=== PATIENT | male | born 1980 | race Caucasian/White ===

== ENCOUNTER 2017-12-12 00:57 | Inpatient (IN) | payer BC ==
[~2017-12-12] VITALS: Ht 167.6 cm; Wt 84.0 kg
[2017-12-12 01:29] LABS: microscopic required? NO
[2017-12-12 01:39] LABS: BASOPHIL % 0.3 % (0-2); PLATELET COUNT 270 x10^3mcL (130-400); RED CELL DISTRIBUTION WIDTH 13.8 % (11.5-14.5)
[2017-12-12 01:47] LABS: UA SPECIFIC GRAVITY 1.025 (1.005-1.035); urine erythrocyte NEGATIVE (NEGATIVE)
[2017-12-12 01:51] LABS: CALCIUM 8.6 mg/dL (8.5-10.1); CHLORIDE SERUM 102 mmol/L (98-107); GFR1 > 60 mL/min; GLUCOSE SERUM 131 mg/dL (74-106); POTASSIUM SERUM 3.6 mmol/L (3.5-5.1); SODIUM SERUM 140 mmol/L (136-145)
[2017-12-12 01:56] LABS: ALBUMIN 3.9 g/dL (3.4-5.0); ALKALINE PHOSPHATASE 100 U/L (46-116); ALT/SGPT 44 U/L (16-63); AST/SGOT 21 U/L (15-37); BILIRUBIN TOTAL 0.33 mg/dL (0.20-1.00); LIPASE 158 IU/L (73-393); TOTAL PROTEIN, SERUM 7.3 g/dL (6.4-8.2)
[2017-12-12 05:49] LABS: MAGNESIUM 2.2 mg/dL (1.8-2.4); PHOSPHOROUS 3.8 mg/dL (2.5-4.9)
[2017-12-12 05:50] LABS: CHOLESTEROL/HDL RATIO 6.5
[2017-12-12 05:58] LABS: T3 TOTAL 1.16 ng/mL
[2017-12-12 06:07] LABS: FREE T4 1.06 ng/dL (0.76-1.46); FREE THYROXINE INDEX 3.1 ug/dL (1.4-4.5); T4(THYROXINE) 8.1 ug/dL (4.7-13.3)
[2017-12-12 07:05] VITALS: BP 114/58
[2017-12-12 07:43] VITALS: BP 114/57
[2017-12-12 12:00] VITALS: BP 123/67
[2017-12-12 15:47] VITALS: BP 123/67
[2017-12-12 19:15] VITALS: BP 111/69
[2017-12-12 23:00] VITALS: BP 119/68
[2017-12-13 03:00] VITALS: BP 122/64
[2017-12-13 05:26] LABS: BASOPHIL % 0.2 % (0-2); PLATELET COUNT 237 x10^3mcL (130-400); RED CELL DISTRIBUTION WIDTH 14.3 % (11.5-14.5)
[2017-12-13 05:42] LABS: CALCIUM 8.1 mg/dL (8.5-10.1); CARBON DIOXIDE 27.2 mmol/L (21-32); CHLORIDE SERUM 106 mmol/L (98-107); CREATININE SERUM 0.8 mg/dL (0.7-1.3); GFR1 > 60 mL/min; GLUCOSE SERUM 124 mg/dL (74-106); MAGNESIUM 2.1 mg/dL (1.8-2.4); PHOSPHOROUS 3.2 mg/dL (2.5-4.9); POTASSIUM SERUM 3.9 mmol/L (3.5-5.1); SODIUM SERUM 140 mmol/L (136-145)
[2017-12-13 06:30] VITALS: BP 102/60
[2017-12-13 09:15] VITALS: BP 105/56
[2017-12-13 15:41] VITALS: BP 114/61
[2017-12-13 17:04] VITALS: BP 101/53
[2017-12-13 22:09] VITALS: BP 100/57
[2017-12-14 05:30] VITALS: BP 94/60
[2017-12-14 07:37] LABS: BASOPHIL % 0.2 % (0-2); PLATELET COUNT 230 x10^3mcL (130-400)
[2017-12-14 07:38] LABS: CALCIUM 8.3 mg/dL (8.5-10.1); CARBON DIOXIDE 29.4 mmol/L (21-32); CHLORIDE SERUM 106 mmol/L (98-107); CREATININE SERUM 0.8 mg/dL (0.7-1.3); GFR1 > 60 mL/min; GLUCOSE SERUM 109 mg/dL (74-106); POTASSIUM SERUM 4.3 mmol/L (3.5-5.1); RED CELL DISTRIBUTION WIDTH 14.6 % (11.5-14.5); SODIUM SERUM 140 mmol/L (136-145)
[2017-12-14 08:00] VITALS: BP 110/64
[2017-12-14 08:04] VITALS: BP 92/59
[2017-12-14 12:02] VITALS: BP 116/66
[2017-12-14 13:27] VITALS: BP 92/59
[2017-12-14] MEDS ORDERED: NORCO 10-325 T1 EACH PO (15:08)
[2017-12-14] MEDS ORDERED: PEPCID20 MG PO (15:09)
[2017-12-14] MEDS ORDERED: CLARITIN10 MG PO (15:10)
== END 2017-12-14 16:30 | disposition home or self-care (01) | DRG 418 ==
LOC: ED 00:57 → IC 04:40 → DU 04:40 → IC 05:53 → DU 06:05 → IC 06:26 → DU 12-13 06:00 → MU 12-14 16:01
PROVIDERS: Emergency Medicine; Family Medicine; Surgery
PROC: 0FT44ZZ Resection of Gallbladder, Percutaneous Endoscopic Approach (ICD-10-PCS; principal; 2017-12-13 12:00)
DX: K81.0 Acute cholecystitis (principal); T88.6XXA Anaphylactic reaction due to adverse effect of correct drug or medicament properly administered, initial encounter; E78.5 Hyperlipidemia, unspecified; T36.0X5A Adverse effect of penicillins, initial encounter; E66.3 Overweight; M51.37 Other intervertebral disc degeneration, lumbosacral region; Y92.230 Patient room in hospital as the place of occurrence of the external cause; F17.210 Nicotine dependence, cigarettes, uncomplicated; Z68.29 Body mass index [BMI] 29.0-29.9, adult
CPT/HCPCS: 83880; 84439; 94150; J0171; J1170; J1200; J1885; J1956; J2270; J2405; J2543; J2930; J3010; J3490; J7030; Q0092; Q9967